=== PATIENT | female | born 1965 | race Two or more races ===

== ENCOUNTER → 2019-12-01 | Outpatient (CLI) | payer BC ==
[2019-12-01 13:15] LABS: BASOPHILS # (AUTO) 0.05 x10^3/uL (0-0.1); BASOPHILS % (AUTO) 1 % (0-1); EOSINOPHILS # (AUTO) 0.21 x10^3/uL (0-0.4); EOSINOPHILS % (AUTO) 4 % (1-7); LYMPHOCYTES % (AUTO) 36 % (22-44); MD NO; MEAN CORPUSCULAR HEMOGLOBIN 30.5 pg (27.0-34.8); MEAN CORPUSCULAR HGB CONC 33.9 g/dL (32.4-35.8); MEAN CORPUSCULAR VOLUME 90.2 fL (80-100); MEAN PLATELET VOLUME 9.3 fL (7.4-10.4); MONOCYTES # (AUTO) 0.44 x10^3/uL (0.2-0.8); MONOCYTES % (AUTO) 7 % (2-9); NEUTROPHILS # (AUTO) 3.27 x10^3/uL (1.8-6.8); NEUTROPHILS % (AUTO) 53 % (42-75); PLATELET COUNT 238 x10^3/uL (130-400); RED BLOOD COUNT 4.71 x10^6/uL (3.82-5.3); RED CELL DISTRIBUTION WIDTH 13.9 % (9.6-15.2)
[2019-12-01 13:19] LABS: ANION GAP 7 mmol/L (5-15); CALCIUM 8.1 mg/dL (8.5-10.1); CHLORIDE 110 mmol/L (98-107); CREATININE 0.89 mg/dL (0.55-1.02)
[2019-12-01 13:29] LABS: MICROSCOPIC AUTO
[2019-12-01 13:33] LABS: CULTURE INDICATED? YES
== END | disposition home or self-care (01) ==
LOC: STAR 11:25
PROVIDERS: ATTEND Obstetrics & Gynecology
DX: Z01.818 Encounter for other preprocedural examination (principal)
CPT/HCPCS: 36415; 80048; 81001; 85025; 87086; 93005

== ENCOUNTER 2019-12-09 10:23 | Day surgery (SDC) | payer BC, OTHER ==
[~2019-12-09] VITALS: Ht 127 cm; Wt 68.9 kg
[2019-12-09] MEDS ORDERED: FLUORESCEIN SODIUM 500 MG/5 ML ONE (11:10)
[2019-12-09] MEDS ORDERED: BUPIVACAINE/PF-EPI 0.25% 1:200K ONE (11:10)
[2019-12-09] MEDS ORDERED: VASOPRESSIN 20 UNIT/ML, 1ML ONE (11:10)
[2019-12-09] MEDS ORDERED: LACTATED RINGERS 1,000 ML IV SCH (12:00)
[2019-12-09] MEDS ORDERED: FENTANYL PF 250 MCG/5ML ONE (12:35)
[2019-12-09] MEDS ORDERED: MIDAZOLAM 1 MG/ML, 2ML ONE (12:35)
[2019-12-09] MEDS ORDERED: PROPOFOL 50 ML ONE (12:35)
[2019-12-09] MEDS ORDERED: MEPERIDINE/PF 25MG/ML,1ML IVPush PRN (13:30)
[2019-12-09] MEDS ORDERED: ACETAMINOPHEN 325 MG TABLET PO PRN (13:30)
[2019-12-09] MEDS ORDERED: PROMETHAZINE 25 MG/ML, 1ML IV PRN (13:30)
[2019-12-09] MEDS ORDERED: EPHEDRINE 50 MG/ML, 1ML IVPush PRN (13:30)
[2019-12-09] MEDS ORDERED: OXYcodone 5 MG/5 ML ORAL.SOL UDC PO PRN (13:30)
[2019-12-09] MEDS ORDERED: DIAZEPAM 5 MG/ML, 2ML IVPush PRN (13:30)
[2019-12-09] MEDS ORDERED: ONDANSETRON ODT 8 MG PO PRN (13:30)
[2019-12-09] MEDS ORDERED: hydrALAzine 20 MG/ML, 1ML IV PRN (13:30)
[2019-12-09] MEDS ORDERED: MORPHINE SULFATE 4 MG/ML, 1ML IVPush PRN (13:30)
[2019-12-09] MEDS ORDERED: EPHEDRINE 50 MG/ML, 1ML IM PRN (13:30)
[2019-12-09] MEDS ORDERED: METOPROLOL 1 MG/ML, 5ML IV PRN (13:30)
[2019-12-09] MEDS ORDERED: ONDANSETRON 2MG/ML, 2ML IV PRN (13:30)
[2019-12-09] MEDS ORDERED: DIPHENHYDRAMINE 50 MG/ML, 1ML IM PRN (13:30)
[2019-12-09] MEDS ORDERED: FUROSEMIDE 20 MG/2 ML ONE (14:15)
[2019-12-09] MEDS ORDERED: FENTANYL PF 100 MCG/2ML ONE (15:50)
[2019-12-09] MEDS: FENTANYL PF 100 MCG/2ML IV PRN ×2 (15:53→16:10)
[2019-12-09] MEDS ORDERED: OXYcodone 5 MG/5 ML ORAL.SOL UDC ONE (16:12)
[2019-12-09] MEDS ORDERED: ONDANSETRON 2MG/ML, 2ML ONE (16:15)
[2019-12-09] MEDS ORDERED: ROCURONIUM 10MG/ML,5ML ONE (16:15)
[2019-12-09] MEDS ORDERED: DEXAMETHASONE 4 MG/ML, 1ML ONE (16:15)
[2019-12-09] MEDS ORDERED: SUCCINYLCHOLINE 20 MG/ML, 10ML ONE (16:15)
== END 2019-12-09 18:05 | disposition home or self-care (01) ==
LOC: OUT 10:23
PROVIDERS: ATTEND Obstetrics & Gynecology
DX: N93.9 Abnormal uterine and vaginal bleeding, unspecified (principal); D25.1 Intramural leiomyoma of uterus; N84.0 Polyp of corpus uteri; N95.0 Postmenopausal bleeding; F15.90 Other stimulant use, unspecified, uncomplicated; Z88.8 Allergy status to other drugs, medicaments and biological substances
CPT/HCPCS: 57283; 58571; 88307; J0330; J1100; J1940; J2250; J2405; J2704; J3010; J7120